=== PATIENT | female | born 1965 | race Caucasian/White ===

== ENCOUNTER 2023-01-09 09:22 | Outpatient (CLI) | payer MEDICAID ==
[~2023-01-09 09:22] MED LIST: ACET-2319 PO; ALBU8.5H17 IH; AMLO10TA PO; ATOR10TA PO; ATRIN INH; DIPH25CA51 PO; DOCU-250 PO; FISH1CAP15 PO; HYDR-4383 PO; LISI10TA27 PO; MOME17SP5 BOTHNARES; MONT-40 PO; TIOT4MIS3 PO; [UNRECOGNIZED DRUG - CODE] PO
== END 2023-01-09 23:59 | disposition home or self-care (01) ==
LOC: RAD 09:22
PROVIDERS: ATTEND Surgery
DX: K59.00 Constipation, unspecified (principal); R19.8 Other specified symptoms and signs involving the digestive system and abdomen; Z98.890 Other specified postprocedural states
CPT/HCPCS: 74176

== ENCOUNTER 2023-08-28 05:47 | Inpatient (IN) | payer MEDICAID ==
[2023-08-21 14:26] LABS: BASOPHILS # (AUTO) 0.1 X10'3 (0-0.2); BASOPHILS % (AUTO) 1.2 % (0-1); BILIRUBIN,URINE NEGATIVE (Neg); CLARITY,URINE SLIGHTLY CLOUDY (Clear); COLOR,URINE YELLOW (Yellow); EOSINOPHILS % (AUTO) 12.6 % (0-6); GLUCOSE, URINE NEGATIVE (Neg); KETONES,URINE NEGATIVE (Neg); LEUKOCYTE ESTERASE ,URINE NEGATIVE (Neg); LYMPHOCYTES # (AUTO) 1.8 X10'3 (1.1-4.8); MEAN CORPUSCULAR HEMOGLOBIN 30.2 PG (27.0-31.0); MEAN CORPUSCULAR HGB CONC 33.3 g/dL (33.0-36.5); MEAN CORPUSCULAR VOLUME 90.8 FL (78-98); MEAN PLATELET VOLUME 7.9 FL (7.4-10.4); MONOCYTES # (AUTO) 0.7 X10'3 (0-0.9); MONOCYTES % (AUTO) 8.9 % (2-12); NEUTROPHILS # (AUTO) 4.2 X10'3 (1.8-7.7); NEUTROPHILS % (AUTO) 54.3 % (42-75); NITRITES, URINE NEGATIVE (Neg); OCCULT BLOOD,URINE MODERATE (Neg); PRE OP HEMATOCRIT 45.3 % (35.0-45.0); PRE OP HEMOGLOBIN 15.1 g/dL (12.0-16.0); PRE OP PLATELET COUNT 373 X10'3 (140-440); PRE OP WHITE BLOOD COUNT 7.8 10'3 (4.8-10.8); PROTEIN,URINE NEGATIVE (Neg); RED BLOOD COUNT 4.99 X10'6 (4.20-5.60); RED CELL DISTRIBUTION WIDTH 13.2 % (11.5-14.5); UROBILINOGEN,URINE 0.2 E.U/dL (0.2-1.0)
[2023-08-21 14:35] LABS: HYALINE CASTS 0-3 /LPF (NEGATIVE); MUCUS STRANDS MANY /LPF (Neg); SQUAMOUS EPITHELIAL CELL,UR MANY /LPF (FEW); UA COLLECTION TYPE CLN CATCH MIDSTREAM
[2023-08-21 14:36] LABS: BACTERIA,URINE FEW /HPF (Neg); WBC,URINE 0-4 /HPF (0-4)
[2023-08-21 14:37] LABS: RBC,URINE 20-50 /HPF (0-2)
[2023-08-21 14:49] LABS: ALBUMIN 3.6 G/DL (3.4-5.0); ALKALINE PHOSPHATASE 61 IU/L (46-116); BLOOD UREA NITROGEN 18 MG/DL (7-18); BUN/CREATININE RATIO 23.7 (10.0-20.0); CHLORIDE 105 MMOL/L (99-107); CREATININE 0.76 MG/DL (0.40-0.90); PRE OP ALT 72 U/L (30-65); PRE OP ANION GAP 9 (8-16); PRE OP AST 36 U/L (10-37); PRE OP BILIRUB, TOTAL 0.2 MG/DL (0.0-1.0); PRE OP GLUCOSE 111 MG/DL (70-104); PRE OP POTASSIUM 3.9 MMOL/L (3.4-5.1); PRE OP SODIUM 140 MMOL/L (135-145); TOTAL CARBON DIOXIDE 25.6 MMOL/L (24-32); TOTAL PROTEIN 7.3 G/DL (6.4-8.2); eGFR 78 ML/MIN
[~2023-08-28] VITALS: Ht 171.4 cm; Wt 82.6 kg
[2023-08-28] VITALS (31 sets, daily range): BP systolic 116–173; BP diastolic 70–106; PULSE 70–109; RESP 16–30; TEMP 97.3–98.7; O2SAT 90–98
[~2023-08-28 05:47] MED LIST changes: -ACET-2319 PO; -AMLO10TA PO; -ATRIN INH; +BUDE10.2 INH; -DIPH25CA51 PO; -DOCU-250 PO; -FISH1CAP15 PO; +FLUT16SP BOTHNARES; +GABA600T13 PO; -HYDR-4383 PO; +METF-1203 PO; -MOME17SP5 BOTHNARES; -TIOT4MIS3 PO; -[UNRECOGNIZED DRUG - CODE] PO; +cefazolin 2gm/D5W 100mL 100 ML IV ONE; +famotidine 20mg tablet PO ONE; +ringers solution, lacted 1,000 ML IV SCH
[2023-08-28] MEDS ORDERED: BUPIVAcaine/PF 2.5mg/ml (0.25%) 10ml vial ONE (07:00)
[2023-08-28] MEDS ORDERED: fentaNYL/PF 50MCG/1 ML 2ML syringe ONE (07:24)
[2023-08-28] MEDS ORDERED: midazolam 1 mg/ML 2ml injection ONE (07:25)
[2023-08-28] MEDS ORDERED: LIDOcaine 2% (20mg/ml) 5ml vial ONE (07:26)
[2023-08-28] MEDS ORDERED: rocuronium 10mg/ml inj IV ONE (07:27)
[2023-08-28] MEDS ORDERED: propofol inj 20 ML IV ONE (07:27)
[2023-08-28] MEDS ORDERED: glycopyrrolate 0.2mg/ml inj ONE (07:27)
[2023-08-28] MEDS ORDERED: dexamethasone sod phosphate 4mg/ml inj. ONE (07:27)
[2023-08-28] MEDS ORDERED: neostigmine methylsulfate 1 MG/ML 10ml vial ONE (07:27)
[2023-08-28] MEDS ORDERED: ondansetron/PF 4mg/2ml inj ONE (07:27)
[2023-08-28] MEDS ORDERED: morphine 2 MG/ML inj. syringe IV PRN (07:35)
[2023-08-28] MEDS ORDERED: fentaNYL/PF 50MCG/1 ML 2ML syringe IV PRN (07:35)
[2023-08-28] MEDS ORDERED: ondansetron/PF 4mg/2ml inj IV PRN ×2 (07:35→16:10)
[2023-08-28] MEDS ORDERED: labetalol 20mg/4ml (5mg/ml) syringe IV PRN (07:35)
[2023-08-28] MEDS ORDERED: hydrALAZINE 20mg/ml inj. IV PRN (07:35)
[2023-08-28] MEDS ORDERED: ringers solution, lacted 1,000 ML IV SCH (07:35)
[2023-08-28] MEDS ORDERED: desflurane 240ml liquid inh. IH ONE (07:40)
[2023-08-28] MEDS ORDERED: acetaminophen 1,000mg/100ml IV 0 ML IV ONE (08:04)
[2023-08-28] MEDS ORDERED: acetaminophen 1,000mg/100ml IV 100 ML IV ONE (08:04)
[2023-08-28] MEDS ORDERED: labetalol 20mg/4ml (5mg/ml) syringe IV ONE (08:19)
[2023-08-28] MEDS ORDERED: BUPIVAcaine/PF 2.5mg/ml (0.25%) 10ml vial IJ ONE (08:32)
[2023-08-28] MEDS: morphine 4 MG/ML inj SYRINge IV PRN ×2 (09:08→09:25)
[2023-08-28] MEDS: fentaNYL/PF 50MCG/1 ML 2ML syringe IV PRN ×2 (09:17→09:35)
[2023-08-28] MEDS ORDERED: meperidine/PF 25mg/ml syringe IV PRN (09:40)
[2023-08-28] MEDS ORDERED: HYDROmorphone/PF 0.2 MG/ML SYRINGE IV PRN (09:40)
[2023-08-28] MEDS: HYDROmorphone/PF 0.2 MG/ML SYRINGE IV PRN ×2 (10:06→15:50)
[2023-08-28] MEDS: meperidine/PF 25mg/ml syringe IV PRN ×2 (10:19→12:18)
[2023-08-28] MEDS ORDERED: HYDROcodone/acetaminophen 10/325mg tab PO ONE (12:20)
[2023-08-28] MEDS ORDERED: proCHLORperazine 10 MG/2 ml inj IV ONE (12:40)
[2023-08-28] MEDS ORDERED: naloxone 0.4 mg/ml inj IV PRN (16:10)
[2023-08-28] MEDS: HYDROmorph/NS 0.2 mg/ml PCA 100 ML IV SCH ×5 (17:00→23:00)
[2023-08-28] MEDS ORDERED: albuterol 2.5 MG/3 ML nebule NEB PRN (18:15)
[2023-08-28] MEDS: normal saline 1000ml 1,000 ML IV SCH (19:00)
[2023-08-28] MEDS: budesonide 0.5mg/2ml UD nebule IH SCH (21:26)
[2023-08-28] MEDS: albuterol 2.5 MG/3 ML nebule NEB SCH (21:26)
[2023-08-28] MEDS: gabapentin 300mg capsule PO SCH (21:29)
[2023-08-28] MEDS: docusate sod 100mg capsule PO SCH (21:29)
[2023-08-28] MEDS: sennosides/docusate sodium tablet PO SCH (21:29)
[2023-08-28] MEDS: atorvastatin 10mg tablet PO SCH (21:29)
[2023-08-29] VITALS (19 sets, daily range): BP systolic 113–154; BP diastolic 56–92; PULSE 84–98; RESP 16–20; TEMP 97.3–98.8; O2SAT 92–95
[2023-08-29] MEDS: HYDROmorph/NS 0.2 mg/ml PCA 100 ML IV SCH ×12 (01:00→23:00)
[2023-08-29] MEDS: albuterol 2.5 MG/3 ML nebule NEB SCH ×4 (02:25→20:31)
[2023-08-29] MEDS: budesonide 0.5mg/2ml UD nebule IH SCH ×2 (07:11→20:31)
[2023-08-29] MEDS: metFORMIN 500mg tablet PO SCH (10:41)
[2023-08-29] MEDS: gabapentin 300mg capsule PO SCH ×3 (10:41→21:19)
[2023-08-29] MEDS: docusate sod 100mg capsule PO SCH ×2 (10:41→21:18)
[2023-08-29] MEDS: montelukast 10mg tablet PO SCH (10:42)
[2023-08-29] MEDS: sennosides/docusate sodium tablet PO SCH ×2 (10:42→21:19)
[2023-08-29] MEDS: lisinopril 10 MG tablet PO SCH (10:45)
[2023-08-29] MEDS ORDERED: acetaminophen 325mg tablet PO PRN (15:40)
[2023-08-29] MEDS: normal saline 1000ml 1,000 ML IV SCH (17:10)
[2023-08-29] MEDS: atorvastatin 10mg tablet PO SCH (21:19)
[2023-08-30] MEDS: HYDROmorph/NS 0.2 mg/ml PCA 100 ML IV SCH ×6 (01:00→11:00)
[2023-08-30 02:41] VITALS: PULSE 93; RESP 16; O2SAT 95
[2023-08-30] MEDS: albuterol 2.5 MG/3 ML nebule NEB SCH ×2 (02:41→07:33)
[2023-08-30 02:49] VITALS: PULSE 94; RESP 16
[2023-08-30 06:00] VITALS: BP 146/80; PULSE 96; RESP 17; TEMP 97.2; O2SAT 95
[2023-08-30 07:33] VITALS: PULSE 94; RESP 16; O2SAT 95
[2023-08-30] MEDS: budesonide 0.5mg/2ml UD nebule IH SCH (07:33)
[2023-08-30 07:41] VITALS: PULSE 87; RESP 16
[2023-08-30] MEDS: montelukast 10mg tablet PO SCH (07:54)
[2023-08-30] MEDS: sennosides/docusate sodium tablet PO SCH (07:54)
[2023-08-30] MEDS: docusate sod 100mg capsule PO SCH (07:54)
[2023-08-30] MEDS: gabapentin 300mg capsule PO SCH (07:54)
[2023-08-30] MEDS: metFORMIN 500mg tablet PO SCH (07:54)
[2023-08-30 07:57] VITALS: BP_SYST 133; PULSE 97
[2023-08-30] MEDS: lisinopril 10 MG tablet PO SCH (07:57)
[2023-08-30] MEDS ORDERED: PCA WASTE DOCUMENTATION 1 MG ML MC ONE (10:55)
== END 2023-08-30 12:20 | disposition home or self-care (01) | DRG 227 ==
LOC: PAS 05:47 → OBSVTOIN 16:14 → ORTHO 4S 16:14
PROVIDERS: ADMIT Surgery; ATTEND Surgery
PROC: 0WUF4JZ Supplement Abdominal Wall with Synthetic Substitute, Percutaneous Endoscopic Approach (ICD-10-PCS; principal; 2023-08-28 07:40)
DX: K43.0 Incisional hernia with obstruction, without gangrene (principal); K57.31 Diverticulosis of large intestine without perforation or abscess with bleeding; I10 Essential (primary) hypertension; J45.909 Unspecified asthma, uncomplicated; F17.200 Nicotine dependence, unspecified, uncomplicated; Z88.6 Allergy status to analgesic agent
CPT/HCPCS: 36415; 80053; 81001; 82948; 85025; 93005; 94640; 94760; A4618; A7000; C1781; G0378; J0131; J0690; J1100; J1170; J2175; J2250; J2270; J2405; J2704; J2710; J3010; J3490; J7030; J7120

== ENCOUNTER 2023-11-29 09:17 | Outpatient (CLI) | payer MEDICAID ==
[~2023-11-29 09:17] MED LIST changes: -FLUT16SP BOTHNARES; +FLUT16SP35 BOTHNARES; -cefazolin 2gm/D5W 100mL 100 ML IV ONE; -famotidine 20mg tablet PO ONE; -ringers solution, lacted 1,000 ML IV SCH
[2023-11-29] MEDS ORDERED: IOHEXOL 12MG/ML oral solution 500 ML BOTTLE PO ONE (09:45)
== END 2023-11-29 23:59 | disposition home or self-care (01) ==
LOC: 64 CT 09:17
PROVIDERS: ATTEND Surgery
DX: K44.9 Diaphragmatic hernia without obstruction or gangrene (principal); I70.0 Atherosclerosis of aorta; M47.816 Spondylosis without myelopathy or radiculopathy, lumbar region; R10.9 Unspecified abdominal pain
CPT/HCPCS: 74176

== ENCOUNTER 2024-02-10 05:45 | Day surgery (SDC) | payer MEDICAID ==
[2024-02-03 11:40] LABS: BASOPHILS # (AUTO) 0.1 X10'3 (0-0.2); BASOPHILS % (AUTO) 0.9 % (0-1); EOSINOPHILS # (AUTO) 0.7 X10'3 (0-0.9); EOSINOPHILS % (AUTO) 6.7 % (0-6); LYMPHOCYTES # (AUTO) 1.7 X10'3 (1.1-4.8); LYMPHOCYTES % (AUTO) 17.6 % (21-51); MEAN CORPUSCULAR HEMOGLOBIN 30.2 PG (27.0-31.0); MEAN CORPUSCULAR HGB CONC 33.4 g/dL (33.0-36.5); MEAN CORPUSCULAR VOLUME 90.5 FL (78-98); MEAN PLATELET VOLUME 8.5 FL (7.4-10.4); MONOCYTES # (AUTO) 0.6 X10'3 (0-0.9); MONOCYTES % (AUTO) 5.7 % (2-12); NEUTROPHILS # (AUTO) 6.7 X10'3 (1.8-7.7); NEUTROPHILS % (AUTO) 69.1 % (42-75); PRE OP HEMATOCRIT 45.4 % (35.0-45.0); PRE OP HEMOGLOBIN 15.1 g/dL (12.0-16.0); PRE OP PLATELET COUNT 393 X10'3 (140-440); PRE OP WHITE BLOOD COUNT 9.7 10'3 (4.8-10.8); RED BLOOD COUNT 5.02 X10'6 (4.20-5.60); RED CELL DISTRIBUTION WIDTH 13.2 % (11.5-14.5)
[2024-02-03 11:58] LABS: ALBUMIN 3.6 G/DL (3.4-5.0); ALBUMIN/GLOBULIN RATIO 0.9 (1.1-1.5); ALKALINE PHOSPHATASE 63 IU/L (46-116); BLOOD UREA NITROGEN 11 MG/DL (7-18); BUN/CREATININE RATIO 14.9 (10.0-20.0); CHLORIDE 104 MMOL/L (99-107); CREATININE 0.74 MG/DL (0.40-0.90); PRE OP ALT 33 U/L (30-65); PRE OP ANION GAP 9 (8-16); PRE OP AST 26 U/L (10-37); PRE OP BILIRUB, TOTAL 0.5 MG/DL (0.0-1.0); PRE OP GLUCOSE 114 MG/DL (70-104); PRE OP POTASSIUM 3.8 MMOL/L (3.4-5.1); PRE OP SODIUM 141 MMOL/L (135-145); TOTAL PROTEIN 7.5 G/DL (6.4-8.2); eGFR 81 ML/MIN
[~2024-02-10] VITALS: Ht 171.4 cm; Wt 81.6 kg
[2024-02-10] VITALS (7 sets, daily range): BP systolic 94–120; BP diastolic 54–77; PULSE 62–84; RESP 14–16; TEMP 97.8; O2SAT 96–99
[2024-02-10] MEDS: cefazolin 2gm/D5W 100mL 100 ML IV ONE (05:41)
[~2024-02-10 05:45] MED LIST changes: -ALBU8.5H17 IH; +AMLO5TAB16 PO; -ATOR10TA PO; +ATOR40TA71 PO; -LISI10TA27 PO; +LISI20TA28 PO; -METF-1203 PO
[2024-02-10] MEDS: ringers solution, lacted 1,000 ML IV SCH (06:07)
[2024-02-10] MEDS: famotidine 20mg tablet PO ONE (06:07)
[2024-02-10] MEDS ORDERED: LIDOcaine 2% (20mg/ml) 5ml vial ONE ×2 (06:46→07:13)
[2024-02-10] MEDS ORDERED: BUPIVAcaine/PF 2.5mg/ml (0.25%) 10ml vial ONE (06:46)
[2024-02-10] MEDS ORDERED: fentaNYL/PF 50MCG/1 ML 2ML syringe ONE (07:11)
[2024-02-10] MEDS ORDERED: MIDAZolam 1 MG/ML 5ML VIAL ONE (07:12)
[2024-02-10] MEDS ORDERED: propofol inj 20 ML IV ONE (07:13)
[2024-02-10] MEDS ORDERED: morphine 2 MG/ML inj. syringe IV PRN ×2 (07:20→08:40)
[2024-02-10] MEDS ORDERED: ondansetron/PF 4mg/2ml inj IV PRN ×2 (07:20→08:40)
[2024-02-10] MEDS ORDERED: morphine 4 MG/ML inj SYRINge IV PRN ×2 (07:20→08:40)
[2024-02-10] MEDS ORDERED: ringers solution, lacted 1,000 ML IV SCH ×2 (07:20→08:40)
[2024-02-10] MEDS ORDERED: labetalol 20mg/4ml (5mg/ml) syringe IV PRN (07:20)
[2024-02-10] MEDS: BUPIVAcaine/PF 5 MG/ML 10ML VIAL IJ ONE (08:16)
[2024-02-10] MEDS ORDERED: hydrALAZINE 20mg/ml inj. IV PRN (08:40)
== END 2024-02-10 09:16 | disposition home or self-care (01) ==
LOC: PAS 05:45
PROVIDERS: ATTEND Orthopaedic Surgery Hand Surgery
DX: G56.01 Carpal tunnel syndrome, right upper limb (principal); I10 Essential (primary) hypertension; J45.909 Unspecified asthma, uncomplicated; Z79.899 Other long term (current) drug therapy; Z88.6 Allergy status to analgesic agent
CPT/HCPCS: 29848; 36415; 80053; 82948; 85025; J0690; J2250; J2704; J3010; J3490; J7030; J7120; Z7506; Z7512; A4215; A6449; A7000; J0665